=== PATIENT | male | born 1960 | race Caucasian/White ===

== ENCOUNTER 2022-11-15 11:55 | Inpatient (IN) | payer BC, OTHER ==
[~2022-11-15] VITALS: Ht 182.9 cm; Wt 138.2 kg
[2022-11-15 12:00] VITALS: PULSE 124; RESP 33; O2SAT 93
[2022-11-15] MEDS ORDERED: ALBUTEROL SULF 2.5 MG/0.5ML(0.5%) NEB SOLN ONE (12:47)
[2022-11-15] MEDS ORDERED: IPRATROPIUM BROM 0.5 MG/2.5ML INH SOL ONE (12:47)
[2022-11-15] MEDS ORDERED: ALBUTEROL SULF 2.5 MG/0.5ML(0.5%) NEB SOLN NEB ONE ×3 (13:00→18:00)
[2022-11-15] MEDS ORDERED: IPRATROPIUM BROM 0.5 MG/2.5ML INH SOL NEB ONE (13:00)
[2022-11-15] MEDS ORDERED: SODIUM CHLORIDE 0.9% 1,000 ML IV ONE ×2 (13:00→18:00)
[2022-11-15] MEDS ORDERED: methylPREDNISolone SOD SUCC 40 MG/ML VL IV ONE ×2 (13:00→18:00)
[2022-11-15 13:19] LABS: Basophils # (auto) 0.1 10 ^3/uL (0-0.2); Basophils % (auto) 1.2 % (0.0-2.0); Eosinophils # (auto) 0.8 10 ^3/uL (0-0.8); Eosinophils % (auto) 7.9 % (0.0-7.0); Hematocrit 45.2 % (41.0-53.0); Hemoglobin 15.4 g/dL (13.5-17.5); Lymphocytes # (auto) 1.2 10 ^3/uL (0.4-5.4); Lymphocytes % (auto) 12.1 % (10.0-50.0); Mean Corpuscular Hemoglobin 32.7 pg (28.0-32.0); Monocytes # (auto) 0.6 10 ^3/uL (0-1.3); Monocytes % (auto) 6.3 % (0.0-12.0); Neutrophils # (auto) 7.1 10 ^3/uL (1.6-8.6); Neutrophils % (auto) 72.5 % (37.0-80.0); Nucleated Red Blood Cells % 0.1 %; Red Blood Cells 4.71 10^6/uL (4.5-5.90); Red Cell Distribution Width 13.3 % (11.8-14.3); White Blood Cell 9.8 10^3/uL (4.4-10.8)
[2022-11-15 13:35] LABS: Albumin 3.8 g/dL (3.4-5.0); Magnesium 2.6 mg/dL (1.6-2.6); Potassium 4.1 mmol/L (3.5-5.1)
[2022-11-15 13:40] LABS: BUN/Creatinine Ratio 18.8 (10.0-20.0); Bilirubin, Total 0.6 mg/dL (0.2-1.0); Total Protein 7.6 g/dL (6.4-8.2)
[2022-11-15] MEDS ORDERED: AZITHROMYCIN 500MG/ 250ML 250 ML IV ONE (15:45)
[2022-11-15] MEDS ORDERED: cefTRIAXone 1GM/50ML D5W 50 ML IV ONE (15:45)
[2022-11-15] MEDS ORDERED: hydrALAZINE HCL 20 MG/ML VL IV PRN (18:00)
[2022-11-15 18:01] LABS: COVID19 ANTIGEN SOFIA FIA NEGATIVE (NEGATIVE)
[2022-11-15] MEDS ORDERED: PRAV20TA3 PO (18:02)
[2022-11-15] MEDS ORDERED: OMEP20TA PO (18:02)
[2022-11-15] MEDS ORDERED: LOSA100T33 PO (18:02)
[2022-11-15] MEDS ORDERED: GABA-339 PO (18:02)
[2022-11-15] MEDS ORDERED: AMLO1TAB22 PO (18:02)
[2022-11-15] MEDS ORDERED: LEVO750T8 PO (18:07)
[2022-11-15] MEDS ORDERED: DEXTROSE (50%) 50ML SYRG IV PRN (18:15)
[2022-11-15 19:40] VITALS: PULSE 100; RESP 16; O2SAT 90
[2022-11-15] MEDS: methylPREDNISolone SOD SUCC 40 MG/ML VL IV SCH (19:59)
[2022-11-15 22:00] VITALS: PULSE 109; RESP 20; O2SAT 89
[2022-11-15] MEDS ORDERED: GABAPENTIN 300 MG CAP PO ONE (22:00)
[2022-11-15] MEDS ORDERED: amLODIPine BESYLATE 5 MG TAB PO ONE (22:00)
[2022-11-15] MEDS ORDERED: HCTZ 25 MG TAB PO ONE (22:00)
[2022-11-15] MEDS: ALBUTEROL SULF 2.5 MG/0.5ML(0.5%) NEB SOLN NEB SCH (22:12)
[2022-11-15 22:13] VITALS: O2SAT 89
[2022-11-15 22:14] VITALS: PULSE 106; RESP 20; O2SAT 94
[2022-11-15 23:17] VITALS: BP 132/59; PULSE 103; RESP 24; TEMP 98; O2SAT 89
[2022-11-15] MEDS: PRAVASTATIN SODIUM 20 MG TAB PO SCH (23:30)
[2022-11-15] MEDS: GABAPENTIN 300 MG CAP PO SCH (23:31)
[2022-11-15] MEDS: ACCU-CHEK COMFORT CURVE STRIP VI SCH (23:31)
[2022-11-15] MEDS: InsuLIN REG 1unit/0.01ml Soln (100units/ml) SC SCH (23:31)
[2022-11-16] VITALS (15 sets, daily range): PULSE 83–110; RESP 16–20; O2SAT 90–100
[2022-11-16] MEDS: ALBUTEROL SULF 2.5 MG/0.5ML(0.5%) NEB SOLN NEB SCH ×6 (02:28→22:21)
[2022-11-16] MEDS: methylPREDNISolone SOD SUCC 40 MG/ML VL IV SCH ×4 (03:31→22:27)
[2022-11-16] MEDS: InsuLIN REG 1unit/0.01ml Soln (100units/ml) SC SCH ×4 (07:00→22:00)
[2022-11-16] MEDS: ACCU-CHEK COMFORT CURVE STRIP VI SCH ×4 (07:00→22:16)
[2022-11-16] MEDS: GABAPENTIN 300 MG CAP PO SCH ×3 (07:19→22:27)
[2022-11-16] MEDS ORDERED: IOHEXOL 350 MG/ML 100ML IJ ONE (07:20)
[2022-11-16 07:36] LABS: Basophils # (auto) 0.1 10 ^3/uL (0-0.2); Basophils % (auto) 0.5 % (0.0-2.0); Eosinophils # (auto) 0 10 ^3/uL (0-0.8); Hematocrit 44.6 % (41.0-53.0); Lymphocytes # (auto) 0.9 10 ^3/uL (0.4-5.4); Lymphocytes % (auto) 7.9 % (10.0-50.0); Mean Corpuscular Hemoglobin 32.3 pg (28.0-32.0); Mean Corpuscular Hgb Conc. 33.5 g/dL (32.0-36.0); Mean Corpuscular Volume 96.3 fL (80.0-100.0); Monocytes # (auto) 0.2 10 ^3/uL (0-1.3); Monocytes % (auto) 1.7 % (0.0-12.0); Neutrophils # (auto) 10.1 10 ^3/uL (1.6-8.6); Neutrophils % (auto) 89.9 % (37.0-80.0); Nucleated Red Blood Cells % 0.1 %; Red Blood Cells 4.63 10^6/uL (4.5-5.90); Red Cell Distribution Width 13.1 % (11.8-14.3); White Blood Cell 11.3 10^3/uL (4.4-10.8)
[2022-11-16 08:03] LABS: BUN/Creatinine Ratio 21.6 (10.0-20.0); Calcium 9.4 mg/dL (8.5-10.1); Potassium 3.7 mmol/L (3.5-5.1)
[2022-11-16 08:36] LABS: Base Excess 4.5 mmol/L (-2.0-2.0)
[2022-11-16] MEDS ORDERED: MORPHINE SULFATE INJ 2 MG/ml SYRG IV PRN (09:45)
[2022-11-16] MEDS ORDERED: NITROGLYCERIN 0.4 MG SL TAB SL PRN (09:45)
[2022-11-16] MEDS ORDERED: OMEPRAZOLE PO SCH (10:00)
[2022-11-16] MEDS ORDERED: OMEPRAZOLE-SOD BICARB 20 MG POWDER PO SCH (10:00)
[2022-11-16] MEDS: cefTRIAXone 1GM/50ML D5W 50 ML IV SCH (10:52)
[2022-11-16] MEDS: AZITHROMYCIN 500MG/ 250ML 250 ML IV SCH (10:52)
[2022-11-16] MEDS: LOSARTAN POTASSIUM 50 MG TAB PO SCH (10:53)
[2022-11-16] MEDS: HCTZ 25 MG TAB PO SCH (10:54)
[2022-11-16] MEDS: amLODIPine BESYLATE 5 MG TAB PO SCH (10:55)
[2022-11-16] MEDS: PANTOPRAZOLE 40 MG TAB PO SCH (11:15)
[2022-11-16] MEDS ORDERED: PRAVASTATIN SODIUM 20 MG TAB PO SCH (18:00)
[2022-11-16] MEDS ORDERED: ZOLPIDEM TARTRATE 5 MG TAB PO PRN (18:00)
[2022-11-16] MEDS: PRAVASTATIN SODIUM 20 MG TAB PO SCH (22:27)
[2022-11-17] VITALS (15 sets, daily range): BP systolic 118–146; BP diastolic 55–68; PULSE 77–98; RESP 14–20; TEMP 97.5–98.1; O2SAT 91–97
[2022-11-17] MEDS: ALBUTEROL SULF 2.5 MG/0.5ML(0.5%) NEB SOLN NEB SCH ×6 (02:00→23:31)
[2022-11-17] MEDS ORDERED: LORazepam 2MG/ML-1ML VIAL IV ONE (04:35)
[2022-11-17] MEDS: methylPREDNISolone SOD SUCC 40 MG/ML VL IV SCH ×4 (04:42→21:21)
[2022-11-17 07:29] LABS: Basophils # (auto) 0 10 ^3/uL (0-0.2); Eosinophils # (auto) 0 10 ^3/uL (0-0.8); Hematocrit 42.2 % (41.0-53.0); Hemoglobin 14.2 g/dL (13.5-17.5); Lymphocytes % (auto) 5.2 % (10.0-50.0); Mean Corpuscular Hemoglobin 32.5 pg (28.0-32.0); Mean Corpuscular Hgb Conc. 33.6 g/dL (32.0-36.0); Mean Corpuscular Volume 96.8 fL (80.0-100.0); Monocytes # (auto) 0.8 10 ^3/uL (0-1.3); Monocytes % (auto) 4.5 % (0.0-12.0); Neutrophils # (auto) 17.2 10 ^3/uL (1.6-8.6); Neutrophils % (auto) 90.3 % (37.0-80.0); Red Blood Cells 4.36 10^6/uL (4.5-5.90); Red Cell Distribution Width 13.3 % (11.8-14.3); White Blood Cell 19.1 10^3/uL (4.4-10.8)
[2022-11-17] MEDS: GABAPENTIN 300 MG CAP PO SCH ×3 (07:32→21:20)
[2022-11-17] MEDS: ACCU-CHEK COMFORT CURVE STRIP VI SCH ×4 (07:56→22:14)
[2022-11-17] MEDS: InsuLIN REG 1unit/0.01ml Soln (100units/ml) SC SCH ×4 (07:56→21:26)
[2022-11-17 08:42] LABS: Base Excess 3.4 mmol/L (-2.0-2.0)
[2022-11-17] MEDS: PANTOPRAZOLE 40 MG TAB PO SCH (09:09)
[2022-11-17] MEDS: amLODIPine BESYLATE 5 MG TAB PO SCH (09:10)
[2022-11-17] MEDS: HCTZ 25 MG TAB PO SCH (09:10)
[2022-11-17] MEDS: AZITHROMYCIN 500MG/ 250ML 250 ML IV SCH (09:11)
[2022-11-17] MEDS: cefTRIAXone 1GM/50ML D5W 50 ML IV SCH (09:11)
[2022-11-17] MEDS ORDERED: LOSARTAN POTASSIUM 50 MG TAB ONE ×2 (09:15→09:16)
[2022-11-17] MEDS: LOSARTAN POTASSIUM 50 MG TAB PO SCH (09:16)
[2022-11-17 10:55] LABS: Calcium 9.1 mg/dL (8.5-10.1)
[2022-11-17] MEDS ORDERED: FUROSEMIDE 40 MG/4 ML VIAL IV ONE (16:45)
[2022-11-17] MEDS: PRAVASTATIN SODIUM 20 MG TAB PO SCH (21:21)
[2022-11-18] VITALS (17 sets, daily range): BP systolic 119–147; BP diastolic 63–88; PULSE 61–97; RESP 16–22; TEMP 97.4–98.8; O2SAT 91–98
[2022-11-18] MEDS: ALBUTEROL SULF 2.5 MG/0.5ML(0.5%) NEB SOLN NEB SCH ×6 (01:49→22:10)
[2022-11-18] MEDS: methylPREDNISolone SOD SUCC 40 MG/ML VL IV SCH ×4 (03:42→21:34)
[2022-11-18] MEDS: GABAPENTIN 300 MG CAP PO SCH ×3 (05:54→21:33)
[2022-11-18] MEDS: InsuLIN REG 1unit/0.01ml Soln (100units/ml) SC SCH ×4 (06:01→21:38)
[2022-11-18] MEDS: ACCU-CHEK COMFORT CURVE STRIP VI SCH ×4 (06:39→21:39)
[2022-11-18] MEDS ORDERED: PRED20TA2 PO (08:46)
[2022-11-18] MEDS: cefTRIAXone 1GM/50ML D5W 50 ML IV SCH (09:27)
[2022-11-18] MEDS: AZITHROMYCIN 500MG/ 250ML 250 ML IV SCH (09:28)
[2022-11-18] MEDS: amLODIPine BESYLATE 5 MG TAB PO SCH (09:30)
[2022-11-18] MEDS: PANTOPRAZOLE 40 MG TAB PO SCH (09:30)
[2022-11-18] MEDS: HCTZ 25 MG TAB PO SCH (09:30)
[2022-11-18] MEDS: LOSARTAN POTASSIUM 50 MG TAB PO SCH (13:02)
[2022-11-18] MEDS: PRAVASTATIN SODIUM 20 MG TAB PO SCH (21:41)
[2022-11-19] VITALS (10 sets, daily range): BP systolic 172–178; BP diastolic 96–123; PULSE 76–96; RESP 18–21; TEMP 97.6; O2SAT 90–99
[2022-11-19] MEDS: ALBUTEROL SULF 2.5 MG/0.5ML(0.5%) NEB SOLN NEB SCH ×3 (02:00→09:49)
[2022-11-19] MEDS: methylPREDNISolone SOD SUCC 40 MG/ML VL IV SCH ×2 (02:34→07:30)
[2022-11-19] MEDS: GABAPENTIN 300 MG CAP PO SCH (06:21)
[2022-11-19] MEDS: ACCU-CHEK COMFORT CURVE STRIP VI SCH (06:25)
[2022-11-19] MEDS: InsuLIN REG 1unit/0.01ml Soln (100units/ml) SC SCH (06:27)
[2022-11-19] MEDS: PANTOPRAZOLE 40 MG TAB PO SCH (07:27)
[2022-11-19] MEDS: HCTZ 25 MG TAB PO SCH (07:28)
[2022-11-19] MEDS: LOSARTAN POTASSIUM 50 MG TAB PO SCH (07:29)
[2022-11-19] MEDS: amLODIPine BESYLATE 5 MG TAB PO SCH (07:29)
[2022-11-19] MEDS: cefTRIAXone 1GM/50ML D5W 50 ML IV SCH (07:30)
[2022-11-19] MEDS: AZITHROMYCIN 500MG/ 250ML 250 ML IV SCH (07:30)
== END 2022-11-19 11:12 | disposition home health service (06) | DRG 190 ==
LOC: EDBD 11:55 → ER 11:55 → TELE 11-16 09:35 → TELE-CENTR 11-17 13:05
PROVIDERS: ADMIT Internal Medicine; ATTEND Internal Medicine
PROC: 5A09357 Assistance with Respiratory Ventilation, Less than 24 Consecutive Hours, Continuous Positive Airway Pressure (ICD-10-PCS; principal; 2022-11-15)
DX: J44.1 Chronic obstructive pulmonary disease with (acute) exacerbation (principal); J18.9 Pneumonia, unspecified organism; J96.10 Chronic respiratory failure, unspecified whether with hypoxia or hypercapnia; J44.0 Chronic obstructive pulmonary disease with (acute) lower respiratory infection; E78.5 Hyperlipidemia, unspecified; I10 Essential (primary) hypertension; Z20.822 Contact with and (suspected) exposure to COVID-19; I27.21 Secondary pulmonary arterial hypertension; Z99.81 Dependence on supplemental oxygen; Z87.891 Personal history of nicotine dependence; D72.829 Elevated white blood cell count, unspecified; T38.0X5A Adverse effect of glucocorticoids and synthetic analogues, initial encounter
CPT/HCPCS: 36415; 36600; 71045; 71275; 80048; 80053; 82805; 82962; 83735; 84443; 84484; 85025; 87040; 87426; 93005; 94640; 94644; 94660; G0378; J0696; J1815

== ENCOUNTER 2023-07-06 10:54 | Emergency (ER) | payer BC ==
[~2023-07-06] VITALS: Ht 185.4 cm; Wt 149.8 kg
[~2023-07-06 10:54] MED LIST: AMLO1TAB22 PO; GABA-339 PO; LEVO750T8 PO; LOSA100T33 PO; OMEP20TA PO; PRAV20TA3 PO; PRED20TA2 PO
[2023-07-06 11:42] LABS: Basophils # (auto) 0.2 10 ^3/uL (0-0.2); Basophils % (auto) 0.8 % (0.0-2.0); Eosinophils # (auto) 0.2 10 ^3/uL (0-0.8); Eosinophils % (auto) 0.8 % (0.0-7.0); Hematocrit 40.4 % (41.0-53.0); Hemoglobin 13.4 g/dL (13.5-17.5); Lymphocytes # (auto) 1.8 10 ^3/uL (0.4-5.4); Mean Corpuscular Hemoglobin 31.5 pg (28.0-32.0); Mean Corpuscular Hgb Conc. 33.2 g/dL (32.0-36.0); Mean Corpuscular Volume 94.9 fL (80.0-100.0); Monocytes % (auto) 9.9 % (0.0-12.0); Neutrophils # (auto) 15.9 10 ^3/uL (1.6-8.6); Neutrophils % (auto) 79.5 % (37.0-80.0); Nucleated Red Blood Cells % 0.1 %; Red Blood Cells 4.25 10^6/uL (4.5-5.90); Red Cell Distribution Width 13.7 % (11.8-14.3)
[2023-07-06] MEDS: IPRATROPIUM BROM 0.5 MG/2.5ML INH SOL HHN ONE (12:00)
[2023-07-06] MEDS: ALBUTEROL SULF 2.5 MG/0.5ML(0.5%) NEB SOLN HHN ONE (12:00)
[2023-07-06] MEDS: methylPREDNISolone SOD SUCC 125 MG/2 ML VL IV ONE (12:00)
[2023-07-06 12:01] LABS: Alanine Aminotransferase 27 U/L (7-40); Albumin 4.1 g/dL (3.2-4.8); Alkaline Phosphatase 64 U/L (46-116); Anion Gap 5 (5-15); Aspartate Aminotransferase 11 U/L (13-40); BUN/Creatinine Ratio 9.5 (10.0-20.0); Blood Urea Nitrogen 10 mg/dL (9-23); Calcium 9.3 mg/dL (8.5-10.1); Carbon Dioxide 28 mmol/L (20-30); Chloride 101 mmol/L (98-107); Glucose 119 mg/dL (74-106); Sodium 134 mmol/L (136-145)
[2023-07-06 12:02] LABS: Total Protein 6.5 g/dL (5.7-8.2)
[2023-07-06] MEDS: methylPREDNISolone SOD SUCC 125 MG/2 ML VL ONE ×2 (12:42→19:16)
[2023-07-06 16:27] VITALS: BP 111/62; PULSE 91; TEMP 99.4
[2023-07-06] MEDS ORDERED: IPRA0.00 IN (17:41)
[2023-07-06] MEDS ORDERED: PRED20TA2 PO (17:44)
[2023-07-06] MEDS ORDERED: AZITHROMYCIN 250 MG TAB PO ONE (17:45)
[2023-07-06] MEDS ORDERED: AZITTAB PO (17:46)
[2023-07-06] MEDS ORDERED: ALBUAER3 IN (17:47)
[2023-07-06] MEDS ORDERED: ALBUTEROL SULF 2.5 MG/0.5ML(0.5%) NEB SOLN ONE (17:52)
[2023-07-06] MEDS ORDERED: IPRATROPIUM BROM 0.5 MG/2.5ML INH SOL ONE (17:53)
[2023-07-06] MEDS: ALBUTEROL SULF 2.5 MG/0.5ML(0.5%) NEB SOLN NEB ONE (18:12)
[2023-07-06] MEDS: IPRATROPIUM BROM 0.5 MG/2.5ML INH SOL NEB ONE (18:12)
[2023-07-06 18:14] VITALS: RESP 18; O2SAT 92
== END 2023-07-06 19:16 | disposition home or self-care (01) ==
LOC: ER 10:54
DX: J44.1 Chronic obstructive pulmonary disease with (acute) exacerbation (principal); I10 Essential (primary) hypertension; Z87.891 Personal history of nicotine dependence
CPT/HCPCS: 36415; 36600; 71045; 80053; 82805; 83880; 85025; 93005; 94640; 94644; 96374; 99285; J2919; J7644